=== PATIENT | female | born 1990 | race Caucasian/White ===

== ENCOUNTER 2018-09-20 10:56 | Inpatient (IN) | payer OTHER ==
[~2018-09-20] VITALS: Ht 160 cm; Wt 77.4 kg
[~2018-09-20 10:56] MED LIST: NO MEDS TAKEN
[2018-09-20] MEDS ORDERED: PNV11TAB PO (11:16)
[2018-09-20 11:17] VITALS: BP 116/66; PULSE 72; RESP 19; Ht 160 cm; Wt 77.4 kg
[2018-09-20] MEDS ORDERED: LACTATED RINGER'S 1,000 ML IV SCH (11:57)
--- NOTE | 2018-09-20 11:57 | TRIAGE ---
OB Triage Datetime Report Generated by CPN: 09/20/2018 11:57 Datetime: 09/20/2018 11:29 Assessment Type: Triage Maternal Assessment Level of Consciousness: Fully Conscious DTR's/Clonus: DTRs 2+; No Clonus Headache: Denies Blurred Vision: No Respiratory Effort: Unlabored; Regular Rhythm; Equal Expansion Breath Sounds, Left: Clear and Equal Breath Sounds, Right: Clear and Equal Nausea/Vomiting: Denies RUQ Epigastric Pain: Denies Lower Extremities Edema: None Degree: None Upper Extremities Edema: None Degree: None Facial Edema: None Fall Risk Assessment History of Falling: (0) No Secondary Diagnosis: (0) No Ambulatory Aid: (0) Bedrest/Nurse Assist IV Therapy: (0) No Gait: (0) Normal/Bedrest/Immobile Mental Status: (0) Oriented to Own Ability Fall Score: 0 Fall Risk Score Definition: No Risk: No action required Datetime: 09/20/2018 11:28 Labor Evaluation Frequency: 2-5 Monitor Mode: External Duration (sec)2399: 50-90 Quality: Moderate Pattern: Normal: <= 5 Contractions in 10 Minutes Resting Tone [place]: Relaxed Heart Rate FHR Baseline Rate: 135 Monitor Mode: External US Variability: Moderate 6-25 bpm Accelerations: 15X15 Decelerations: None Category: Category I Datetime: 09/20/2018 11:25 Time of Arrival: 09/20/2018 10:48 EGA: 37.6 Arrived By: Ambulatory Arrived From: Home Chief Complaint: UC'S and leaking Movement: Present Contractions: Regular Time Contractions Began: 09/20/2018 08:00 Rupture of Membranes: Unsure Vaginal Bleeding: None Vaginal Discharge: Present Recent Sexual Intercouse: Denies Abdominal Trauma: Not Applicable Patient Complaints: Other Time Provider Notified: 09/20/2018 11:44 Provider Notified: DR DEAL Initial Plan: KENTRELL DAVIS
[2018-09-20] MEDS ORDERED: METHYLERGONOVINE 0.2 MG INJ IM PRN ×2 (12:00→17:00)
[2018-09-20] MEDS ORDERED: MISOPROSTOL 200 MCG TAB PR PRN ×2 (12:00→17:00)
[2018-09-20] MEDS ORDERED: CARBOPROST 250 MCG INJ IM PRN ×2 (12:00→17:00)
[2018-09-20] MEDS ORDERED: IBUPROFEN 600 MG TAB PO PRN (12:00)
[2018-09-20] MEDS ORDERED: OXYTOCIN 30 UNITS/LR 500 ML IV SCH ×2 (12:00)
[2018-09-20] MEDS ORDERED: BUTORPHANOL 2 MG INJ IV PRN (12:00)
[2018-09-20] MEDS ORDERED: OXYTOCIN 30 UNITS/LR 500 ML IV PRN ×2 (12:00→17:00)
[2018-09-20] MEDS ORDERED: LIDOCAINE 1% (MPF) 30 ML INJ INJ PRN (12:00)
[2018-09-20] MEDS ORDERED: FENTAnyl 2MCG/ML-ROPIV 0.2% 100 ML ONE (13:08)
--- NOTE | 2018-09-20 14:17 | PREAC ---
Date/Time of Note Date/Time of Note DATE: 09/20/18 TIME: 14:14 Anesthesia Eval and Record Evaluation Time Pre-Procedure Interview DATE: 09/20/18 TIME: 12:45 Age 28 Sex female NPO: 8 hrs Preoperative diagnosis iup @ 38.5 wks., , labor Planned procedure marek Past Medical History Past Medical History: Includes : :, Para:, Gestational age: Surgery & Anesthesia Issues No known issue Meds Anticoagulation: No Beta Whitney within 24 hr: No Reason Beta Whitney not given: Pt. not on B-Whitney Reported Medications [id number] ( 19) 1 Each Tablet, 1 TAB PO DAILY, TAB 09/20/18 [No Meds Taken] No Conflict Check 09/10/10 Current Medications Lactated Ringer's 1,000 ml @ 125 mls/hr Q8H IV Last administered on 09/20/18at 12:23; Admin Dose 125 MLS/HR; Start 09/20/18 at 11:57 Butorphanol Tartrate (Stadol) 2 mg Q2H PRN IV .PAIN SCALE 6-10; Start 09/20/18 at 12:00 Lidocaine (Xylocaine 1% (Mpf)) 30 ml ONCE PRN INJ .EPISIOTOMY; Start 09/20/18 at 12:00 Oxytocin/Lactated Ringer's 500 ml @ 500 mls/hr ONCE POST IV ; Start 09/20/18 at 12:00 Oxytocin/Lactated Ringer's 500 ml @ 125 mls/hr POST IV ; Start 09/20/18 at 12:00 Ibuprofen (Motrin) 600 mg ONCE PRN PO .PAIN 1-5; Start 09/20/18 at 12:00 Oxytocin/Lactated Ringer's 500 ml @ 0 mls/hr ONCE PRN IV .VAGINAL BLEEDING; Start 09/20/18 at 12:00 Methylergonovine Maleate (Methergine) 0.2 mg ONCE PRN IM .VAGINAL BLEEDING; Start 09/20/18 at 12:00 Carboprost Tromethamine (Hemabate) 250 mcg ONCE PRN IM .VAGINAL BLEEDING; Start 09/20/18 at 12:00 Misoprostol (Cytotec) 1,000 mcg ONCE PRN [place] .VAGINAL BLEEDING; Start 6/1/19 at 12:00 Meds reviewed: Yes Allergies Coded Allergies: No Known Drug Allergy (Verified Allergy, Mild, 02/15/11) Allergies Reviewed: Yes Labs/Studies Labs Reviewed: Reviewed by anesthesiologist Result Diagram: 09/20/18 1200 Laboratory Tests 09/20/18 12:00 Blood Bank Test 09/20/18 12:00 Antibody Screen NEGATIVE Blood Type O POSITIVE Rh Immune Globulin Candidate NO test: Positive Studies: ECG, CXR (n/a) Pre-procedure Exam Last vitals Vital Signs Date Temp Pulse Resp B/P (MAP) Pulse Ox O2 O2 Flow FiO2 Time Delivery Rate 09/20/18 98.1 72 19 116/66 Room Air 11:17 (83) Airway: Adequate mouth opening, Adequate thyromental dist Mallampati: Mallampati II Teeth: Normal Lung: Normal Heart: Normal ASA Physical Status ASA physical status: 2 Emergency: E Planned Anesthetic Neuraxial: Epidural Planned Pain Management Epidural, Local by surgeon Pre-operative Attestations Prior to commencing anesthesia and surgery, the patient was re-evaluated, there was verification of: *The patient's identity *The results of appropriate recent lab work and preoperative vital signs *The above evaluation not changing prior to induction *Anesthetic plan, risk benefits, alternative and complications discussed with patient/family; questions answered; patient/family understands, accepts and wishes to proceed. Director Critical Care used CHRIS SWAN MD Sep 20, 2018 14:17
[2018-09-20] MEDS ORDERED: NALOXONE (0.4 MG/ML) INJ IV PRN (14:30)
[2018-09-20] MEDS ORDERED: FENTAnyl 2MCG/ML-ROPIV 0.2% 100 ML BAG EPI SCH (14:30)
[2018-09-20] MEDS ORDERED: ONDANSETRON 4 MG INJ IV PRN (14:30)
[2018-09-20] MEDS ORDERED: LANOLIN HPA 1 PKT TOP PRN (17:00)
[2018-09-20] MEDS ORDERED: HYDROCODONE/APAP (5/325) TAB PO PRN (17:00)
[2018-09-20] MEDS ORDERED: BENZOCAINE 20% 56 ML SPRAY TOP PRN (17:00)
--- NOTE | 2018-09-20 17:06 | LDN ---
Date/Time of Note Date/Time of Note DATE: 09/20/18 TIME: 17:03 Delivery Summary of a viable baby girl weighing 2570 grams or 5# 11 oz, 19" long, and with Apgars of 9/9. Weeks of Gestation 37w 6d Placenta Delivered: Spontaneously Meconium: none Episiotomy: No Perineal laceration: 2 Laceration repair: 2nd degree perineal laceration repaired with 2-0 chromic. Anesthesia type: Epidural Estimated blood loss: 150 Sponge & Needle done & correct: Yes All needle counts correct: Yes Any foreign bodies felt in the: No (vagina) Delivery Information Sex Infant Sex: female Apgars 1 Minute: 9 5 Minute: 9 Suctioning Nose & mouth suctioned at jhonatan: Yes Delee suction performed: No Umbilical Cord Umbilical cord with: 3 Vessels Cord presentations: nuchal cord Nuchal cord present X: 1 Cord Blood was obtained: Yes Mother & Baby Disposition Disposition Mom & Baby to Maternity; Good: Yes Baby to NICU: No KAUR DEAL MD Sep 20, 2018 17:06
--- NOTE | 2018-09-20 17:10 | HP ---
Date/Time of Note Date/Time of Note DATE: 09/20/18 TIME: 17:07 OB - History Hx of Present Free Text/Dictation 28 y.o. G1 with an IUP at 37w 6d came in labor with an initial exam of 80 % and 3-4 cm, with ruptured membranes. Estimated Due Date: Oct 05, 2018 : 1 Para: 0 Care: Good Care Ultrasounds: Normal mid trimester US Obstetrical Complications: None Medical Complications: None Past Family/Social History * Past Medical, Surgical, Family and Obstetric Histories reviewed with pt as only her labs were available. Blood Type: O+ Rubella: not immune RPR/VDRL: Negative GBS Status: Negative HBsAG: Negative OB Admission Exam Vital Signs Vital Signs Vital Signs Date Temp Pulse Resp B/P (MAP) Pulse Ox O2 O2 Flow FiO2 Time Delivery Rate 09/20/18 98.1 72 19 116/66 Room Air 11:17 (83) Physical Exam HEENT: WNL Heart: Rhythm Normal Lungs: Clear Abdomen: WNL Extremities: Normal Reflexes: Normal Cervical Dilatation: 4cm Effacement: Other (80%) Station: -2 Membranes: Ruptured Amniotic Fluid: Clear Heart Rate: 140's Accelerations: Accelerations Present Decelerations: No Decelerations Varibility: Moderate Contractions on Admission: < 5 Minutes Apart Intensity: Moderate Last 72 hours Lab Results CBC & BMP 09/20/18 12:00 OB Assessment/Plan Reason for admission: active labor, rupture of membranes Plan: Expectant Management KAUR DEAL MD Sep 20, 2018 17:10
[2018-09-20 18:00] VITALS: BP 109/63; PULSE 67; RESP 18
[2018-09-20] MEDS: IBUPROFEN 600 MG TAB PO SCH (18:00)
[2018-09-20] MEDS: LACTATED RINGER'S 1,000 ML IV* SCH (18:20)
[2018-09-20 19:50] VITALS: BP 107/65; PULSE 97; RESP 18
[2018-09-20] MEDS: OXYTOCIN 30 UNITS/LR 500 ML IV SCH (21:53)
[2018-09-21] MEDS: IBUPROFEN 600 MG TAB PO SCH ×5 (00:06→23:36)
[2018-09-21] MEDS: LACTATED RINGER'S 1,000 ML IV* SCH ×3 (01:00→17:00)
[2018-09-21] MEDS: OXYTOCIN 30 UNITS/LR 500 ML IV SCH (03:00)
[2018-09-21 03:40] VITALS: BP 127/84; PULSE 91; RESP 17
--- NOTE | 2018-09-21 11:38 | QN ---
Documentation Comment PPD#1 is astable afebrile tolerates diet No VB +VM +Voids VS stable Gen NAD Abd soft NT ND Genitalia No blood at perineum --->Discharge plan tomorrow JACQUELINE HUTCHISON M.D. Sep 21, 2018 11:38
[2018-09-21 16:00] VITALS: BP 106/60; PULSE 80; RESP 18
[2018-09-21 20:00] VITALS: BP 100/59; PULSE 76; RESP 20
[2018-09-22 04:00] VITALS: BP 110/66; PULSE 70; RESP 18
[2018-09-22] MEDS: IBUPROFEN 600 MG TAB PO SCH ×2 (05:34→11:36)
[2018-09-22 08:00] VITALS: BP 115/76; PULSE 73; RESP 18
[2018-09-22] MEDS ORDERED: DIPHTH/TET/ACEL PERTUSS (ADULT) 0.5 ML VIAL IM* ONE (09:00)
--- NOTE | 2018-09-22 10:50 | PD.PPDC ---
WATCH ADJUSTER Discharge Instruction Condition [id number] Patient Condition: [id number] Fair Diet [id number] Diet: Kemvr5e Resume Regular Diet Activity/Restrictions [id number] Activity: Wxipj1f Normal Activity May Shower Gatpr4Er Restrictions: Pqhaz6y No Exercising No Lifting No Driving No Sexual Activity Nothing in the Vagina No [place] No Tampons, douche Follow-up Follow-up with Physician: 3, Week/Weeks Return to clinic for [id number] CONTINUOUS PICKLING LINE PICKLER HELPER Instructions: [id number] Fever greater than 101 Chills Worsening abdominal pain Excessive Vaginal Bleeding More than 2 pads per hour Unable to tolerate diet [id number] OB Instructions: [id number] Breast Tenderness Depression Blurried Vision Headache [id number] Surgical Instructions: Quokr9g Incisional Drainage Incisional Redness NIR MOY MD Sep 22, 2018 10:50
--- NOTE | 2018-09-22 10:53 | DS ---
Date/Time of Note Date/Time of Note DATE: 09/22/18 TIME: 10:52 Obstetrical Discharge Record Final Diagnosis Final Diagnosis: Term delivered Vaginal Delivery Obstetrical Delivery: Spontaneous Condition on Discharge Physical Assessment Last Vitals: stable afebrile Voiding: Yes Bowel Movement: Yes Breast: Soft, non-tender, Filling Fundus: Firm Abdomen and Incision: soft nt Calf Tenderness: No Patient Condition: Fair NIR MOY MD Sep 22, 2018 10:53
[2018-09-22] MEDS ORDERED: MEASLES,MUMPS,RUBELLA VACCINE INJ SC* ONE (12:00)
--- NOTE | 2018-09-23 16:22 | DELSUM ---
Delivery Summary A-C Datetime Report Generated by CPN: 09/23/2018 16:22 DELIVERY PERSONNEL Maintenance Apprentice: Fauzia Kaiser MATERNAL INFORMATION Delivery Anesthesia: Epidural Medications in Delivery: LR WITH 30 UNITS PITOCIN Delivery QBL (ml): 150 Placenta Cultured: No Maternal Complications: Other Other Maternal Complications: SROM AND UC'S LABOR SUMMARY EDC: 10/05/2018 00:00 No. Babies in Womb: 1 Attempted: No Labor Anesthesia: Epidural LABOR INFORMATION Reason for Induction: Not Applicable Reason for Induction- Other: srom Onset of Labor: 09/20/2018 08:00 Complete Dilatation: 09/20/2018 13:36 Oxytocin: N/A Group B Beta Strep: Negative Antibiotics # of Doses: 0 Steroids Given: None Reason Steroids Not Administered: Not Applicable MEMBRANES Membranes Rupture Method: Spontaneous Rupture of Membranes: 09/20/2018 08:00 Length of Rupture (hr): 8.37 Amniotic Fluid Color: Clear Amniotic Fluid Amount: Moderate Amniotic Fluid Odor: Normal STAGES OF LABOR Stage 1 hr: 5 Stage 1 min: 36 Stage 2 hr: 2 Stage 2 min: 46 Stage 3 hr: 0 Stage 3 min: 1 Total Time in Labor hr: 8 Total Time in Labor min: 23 VAGINAL DELIVERY Episiotomy: None Laceration Extension: Second Degree Laceration Type: Perineal Laceration Repair: Yes Initial Vag Sponge Count: 10 Final Vag Sponge Count: 10 Initial Vag Sharps Count: 2 Final Vag Sharps Count: 2 Sponge Count Correct: Yes Sharps Count Correct: Yes BABY A INFORMATION Delivery Date/Time: 09/20/2018 16:22 Method of Delivery: Vaginal Born in Route : No : N/A Forceps: N/A Vacuum Extraction: N/A Shoulder Dystocia : N/A SHOULDER DYSTOCIA BABY A Delivery Date/Time: 09/20/2018 16:22 PRESENTATION/POSITION BABY A Presentation: Cephalic Cephalic Presentation: Vertex Vertex Position: Left Occipital Anterior Breech Presentation: N/A PLACENTA INFORMATION BABY A Placenta Delivery Time : 09/20/2018 16:23 Placenta Method of Delivery: Spontaneous Placenta Status: Delivered SCORES BABY A Heart Rate 1 min: >100 bpm Resp Effort 1 min: Good Cry Reflex Irritability 1 min: Cough/Sneeze/Pulls Away Muscle Tone 1 min: Active Motion Color 1 min: Body [place], Extremit Blue Resuscitation Effort 1 min: Tactile Stimulation SCORE 1 MIN: 9 Heart Rate 5 min: >100 bpm Resp Effort 5 min: Good Cry Reflex Irritability 5 min: Cough/Sneeze/Pulls Away Muscle Tone 5 min: Active Motion Color 5 min: Body [place], Extremit Blue Resuscitation Effort 5 min: Tactile Stimulation SCORE 5 MIN: 9 INFANT INFORMATION BABY A Gestational Age at Delivery: 37.6 Gestational Status: Early Term- 37- 38.6 Weeks Outcome : Liveborn Condition : Stable Sex: Female IDENTIFICATION/MEDS BABY A ID Band Number: [id number] ID Band Location: Right Leg; Left Arm Sensor Applied: Yes Sensor Number: [id number] Sensor Location : Cord Clamp Vitamin K Given : Not Given Erythromycin Given: Not Given WEIGHT/LENGTH BABY A Infant Birthweight (gm): 2570 Weight (lb): 5 Infant Weight (oz): 11 Length (in): 19.00 Length (cm): 48.26 CORD INFORMATION BABY A No. Cord Vessels: 3 Nuchal Cord : Around Neck x1, Loose Cord Blood Taken: Yes Infant Suction: Mouth; Nose ASSESSMENT BABY A Infant Complications: None Physical Findings at Delivery: Molding of the Head; Within Normal Limits Infant Respirations: Appears Normal Fuel Efficient Automobile Designer/ALS Called : Yes Infant Care By: RT Transferred To: Remains with Mother
--- NOTE | 2018-09-27 08:40 | PAC ---
Date/Time of Note Date/Time of Note DATE: 09/20/18 TIME: 23:30 Post-Anesthesia Notes Post-Anesthesia Note Activity: WNL Respiratory function: WNL Cardiovascular function: WNL Mental status: Baseline Pain reasonably controlled: Yes Hydration appropriate: Yes Nausea/Vomiting absent: Yes CHRIS SWAN MD Sep 27, 2018 08:40
== END 2018-09-22 16:21 | disposition home or self-care (01) | DRG 807 ==
LOC: L-D 10:56 → OBT 10:56 → L-D 11:45 → OBT 11:45 → L-D 11:55 → PP1 18:01
PROVIDERS: ADMIT Obstetrics & Gynecology; ATTEND Obstetrics & Gynecology
PROC: 10E0XZZ Delivery of Products of Conception, External Approach (ICD-10-PCS; principal; 2018-09-20)
PROC: 0KQM0ZZ Repair Perineum Muscle, Open Approach (ICD-10-PCS; 2018-09-20)
DX: O70.1 Second degree perineal laceration during delivery (principal); Z37.0 Single live birth; Z3A.37 37 weeks gestation of pregnancy; O69.81X0 Labor and delivery complicated by cord around neck, without compression, not applicable or unspecified
CPT/HCPCS: 62322; 85025; 85048; 85610; 85730; 86592; 86850; 86900; 86901; 87340; 90715; 99464; G0463; J2590; J3010; J7120